=== PATIENT | male | born 1940 | race Caucasian/White ===

== ENCOUNTER 2017-05-31 08:52 | Inpatient (IN) | payer OTHER, BC ==
[~2017-05-31] VITALS: Ht 177.8 cm; Wt 108.6 kg
[~2017-05-31 08:52] MED LIST: CARDURA8 MG PO; CELEBREX200 MG PO; COZAAR100 MG PO; LO-DOSE ASPIRIN81 M1 PO; ULTRAM50 MG PO
[2017-05-31 09:41] VITALS: BP 134/73
[2017-05-31 20:00] VITALS: BP 122/58
[2017-05-31 23:49] VITALS: BP 100/57
[2017-06-01 04:09] VITALS: BP 97/50
[2017-06-01 08:00] VITALS: BP 131/62
[2017-06-01] MEDS ORDERED: HYDROCODON-ACE1 EAC7 PO (08:50)
[2017-06-01] MEDS ORDERED: CYCLOBENZAPRINE10 MG PO (08:50)
[2017-06-01 11:07] VITALS: BP 127/59
[2017-06-01 16:05] VITALS: BP 148/67
== END 2017-06-01 19:43 | disposition home or self-care (01) | DRG 517 ==
LOC: SDC 08:52 → ENRESERV 16:44 → 2SOUTH 16:51 → 3EAST 16:51 → ENRESERV 17:26 → 3EAST 19:32
DX: M48.062 Spinal stenosis, lumbar region with neurogenic claudication (principal); M51.36 Other intervertebral disc degeneration, lumbar region; M47.26 Other spondylosis with radiculopathy, lumbar region; M48.05 Spinal stenosis, thoracolumbar region; M54.31 Sciatica, right side; I10 Essential (primary) hypertension; N40.0 Benign prostatic hyperplasia without lower urinary tract symptoms; I45.10 Unspecified right bundle-branch block; Z68.34 Body mass index [BMI] 34.0-34.9, adult; Z87.891 Personal history of nicotine dependence; E66.9 Obesity, unspecified; Z79.82 Long term (current) use of aspirin
CPT/HCPCS: 72020; 76000; J0131; J0690; J1100; J1170; J1885; J2405; J3010; J3370; J3480; P9045